=== PATIENT | female | born 1985 | race Two or more races ===

== ENCOUNTER 2016-07-13 17:53 | Emergency (ER) | payer OTHER ==
[2016-07-13] MEDS ORDERED: MAG HYDROX/AL HYDROX/SIMETH 30 ML UDC PO STA (20:30)
[2016-07-13] MEDS ORDERED: PHENobarb/HYOSCY/ATROPINE/SCOP 5 ML SYRINGE PO STA (20:30)
[2016-07-13] MEDS ORDERED: FAMOTIDINE 20 MG TABLET PO STA (20:30)
[2016-07-13] MEDS ORDERED: LIDOCAINE VISCOUS 2% 15 ML UDC MM STA (20:30)
[2016-07-13] MEDS ORDERED: SUCRALFATE 1 GM/10 ML UDC PO STA (20:30)
[2016-07-13] MEDS ORDERED: PHENobarb/HYOSCY/ATROPINE/SCOP 5 ML SYRINGE PO ONE (20:59)
[2016-07-13] MEDS ORDERED: SUCRALFATE 1 GM/10 ML UDC ONE (20:59)
[2016-07-13] MEDS ORDERED: FAMOTIDINE 20 MG TABLET ONE (20:59)
[2016-07-13] MEDS ORDERED: LIDOCAINE VISCOUS 2% 15 ML UDC MM ONE (20:59)
[2016-07-13] MEDS ORDERED: MAG HYDROX/AL HYDROX/SIMETH 30 ML UDC ONE (21:00)
== END 2016-07-13 22:22 | disposition home or self-care (01) ==
DX: K29.00 Acute gastritis without bleeding (principal); Z90.49 Acquired absence of other specified parts of digestive tract
CPT/HCPCS: 36415; 80053; 81003; 81025; 83690; 85025; 99284; A9270